=== PATIENT | male | born 1955 | race Caucasian/White ===

== ENCOUNTER 2017-01-13 16:33 | Inpatient (IN) | payer OTHER ==
[~2017-01-13] VITALS: Ht 177.8 cm; Wt 91.6 kg
[2017-01-13] MEDS ORDERED: SODIUM CHLORIDE 0.9% 1,000 ML IV ONE (19:02)
[2017-01-13 19:27] LABS: HEMATOCRIT. 30.9 % (42.0-52.0); HEMOGLOBIN. 10.1 g/dL (14.0-18.0); MEAN CORPUSCULAR HEMOGLOBIN 35.3 pg (28.0-32.0); MEAN CORPUSCULAR VOLUME 108.3 fL (80.0-94.0); PLATELET 287 x1000/uL (130-400); RED BLOOD CELL COUNT 2.86 mill/uL (4.7-6.1)
[2017-01-13 19:31] LABS: CHLORIDE 97 mEq/L (98-107); INR 1.4; PROTHROMBIN TIME 14.8 sec (9.4-11.6)
[2017-01-13 19:37] LABS: CARBON DIOXIDE 14 mEq/L (21-32); ETHANOL BLOOD < 10 mg/dL
[2017-01-13 19:48] LABS: PLATELET ESTIMATE NORMAL
[2017-01-13 20:21] LABS: AMMONIA 13 uMol/L (<32)
[2017-01-13] MEDS ORDERED: LORAZEPAM 2MG/ML CPJ IV ONE (21:15)
[2017-01-13 21:36] LABS: CLARITY URINE CLEAR (CLEAR); COLOR URINE ORANGE (YELLOW); GLUCOSE URINE NEGATIVE (NEGATIVE); KETONES URINE NEGATIVE (NEGATIVE); LEUKOCYTE ESTERASE URINE 1+ (NEGATIVE); NITRITE URINE POSITIVE (NEGATIVE); OCCULT BLOOD URINE NEGATIVE (NEGATIVE); PH URINE 5.5 (4.5-8.0); PROTEIN URINE NEGATIVE (NEGATIVE); SPECIFIC GRAVITY URINE 1.022 (1.005-1.030)
[2017-01-13 21:52] LABS: *AMPHETAMINES SCREEN URINE NEGATIVE (NEGATIVE); *BARBITURATES SCREEN URINE NEGATIVE (NEGATIVE); *BENZODIAZEPINES SCREEN URINE NEGATIVE (NEGATIVE); *COCAINE SCREEN URINE NEGATIVE (NEGATIVE); CANNABINOID URINE SCREEN NEGATIVE (NEGATIVE); METHADONE URINE SCREEN NEGATIVE (NEGATIVE); OPIATES URINE SCREEN NEGATIVE (NEGATIVE); PHENCYCLIDINE URINE SCREEN NEGATIVE (NEGATIVE)
[2017-01-13] MEDS ORDERED: VANCOMYCIN 1 G PREMIX 200 ML IV ONE (22:30)
[2017-01-13] MEDS ORDERED: PIPERACILLIN/TAZ 3.375G PREMIX 50 ML IV ONE (22:30)
[2017-01-13] MEDS ORDERED: SODIUM CHLORIDE 0.9% 1,000 ML IV SCH (22:47)
[2017-01-13 23:13] LABS: BG BASE EXCESS -7.7 mmol/L (-2.0-2.0); BG CARBOXYHEMOGLOBIN 0.3 % (0.5-1.5); BG FRACTION INSPIRED OXYGEN 32; BG HCO3 ACT 13.6 mmol/L (22.0-26.0); BG METHEMOGLOBIN 0.3 % (0.0-1.5); BG OXYHEMOGLOBIN 98.4 % (94.0-97.0); BG PCO2 17.8 mmHg (35.0-45.0); BG PH 7.502 (7.350-7.450); BG PO2 168.3 mmHg (75.0-100.0); BG SAMPLE SITE RIGHT RADIAL; BG VENT MODE NASAL CANNULA
[2017-01-14] VITALS (7 sets, daily range): BP systolic 104–136; BP diastolic 59–83
[2017-01-14 07:39] LABS: AMMONIA < 10 uMol/L (<32)
[2017-01-14] MEDS ORDERED: PIPERACILLIN/TAZ 3.375G PREMIX 50 ML IV SCH ×2 (08:00→12:00)
[2017-01-14 08:02] LABS: CARBON DIOXIDE 16 mEq/L (21-32); CHLORIDE 102 mEq/L (98-107); CREATINE KINASE 81 IU/L (39-308); HDL CHOLESTEROL 25 mg/dL (40-59); LDL CHOLESTEROL 155 mg/dL (5-100)
[2017-01-14 08:06] LABS: TROPONIN I < 0.02 ng/mL (0.00-0.04)
[2017-01-14 08:12] LABS: CREATINE KINASE MB FRACTION 1.4 ng/mL (0.5-3.6)
[2017-01-14 08:26] LABS: HEMATOCRIT. 27.1 % (42.0-52.0); MEAN CORPUSCULAR HEMOGLOBIN 35.7 pg (28.0-32.0); MEAN PLATELET VOLUME 8.9 fl (7.4-10.4); PLATELET 192 x1000/uL (130-400); RED BLOOD CELL COUNT 2.51 mill/uL (4.7-6.1); RED CELL DISTRIBUTION WIDTH 20.9 % (11.6-14.6)
[2017-01-14] MEDS: FOLIC ACID 1MG TABLET PO SCH (09:00)
[2017-01-14] MEDS: MULTIVITAMINS,THER W-MINERALS TABLET PO SCH (09:00)
[2017-01-14] MEDS: THIAMINE HCL 100MG TABLET PO SCH (09:00)
[2017-01-14] MEDS ORDERED: VANCOMYCIN 1250MG in DEXTROSE 5% WATER 250ML IV SCH (09:00)
[2017-01-14 09:20] LABS: T4 FREE 0.7 ng/dL (0.76-1.46)
[2017-01-14 09:44] LABS: FOLIC ACID (FOLATE) SERUM 1.9 ng/mL (>5.38)
[2017-01-14] MEDS: ENOXAPARIN 40MG/0.4ML SYR SUBCUT SCH (10:21)
[2017-01-14] MEDS: PIPERACILLIN/TAZ 3.375G PREMIX 50 ML IV SCH ×2 (15:42→20:40)
[2017-01-14] MEDS: DEXT 5%/0.45% NACL 1000ML 1,000 ML IV SCH (17:44)
[2017-01-14 19:06] LABS: CREATINE KINASE 86 IU/L (39-308); CREATINE KINASE MB FRACTION 1.3 ng/mL (0.5-3.6); TROPONIN I < 0.02 ng/mL (0.00-0.04)
[2017-01-14] MEDS ORDERED: KCL 20MEQ/100ML PREMIX 100 ML IV NR (20:00)
[2017-01-14] MEDS: VANCOMYCIN 1 G PREMIX 200 ML IV SCH (21:47)
[2017-01-15] VITALS: BP 119/64
[2017-01-15 00:13] LABS: PLATELET ESTIMATE NORMAL
[2017-01-15] MEDS: PIPERACILLIN/TAZ 3.375G PREMIX 50 ML IV SCH ×4 (03:56→22:47)
[2017-01-15 04:00] VITALS: BP 116/70
[2017-01-15] MEDS: DEXT 5%/0.45% NACL 1000ML 1,000 ML IV SCH ×2 (05:51→17:45)
[2017-01-15 06:55] LABS: BASOPHILS % 0.2 % (0.0-2.0); EOSINOPHILS % 0.4 % (0.0-5.0); HEMATOCRIT. 25.1 % (42.0-52.0); HEMOGLOBIN. 8.2 g/dL (14.0-18.0); LYMPHOCYTES % 8.9 % (20.0-50.0); MEAN CORPUSCULAR HEMOGLOBIN 35.8 pg (28.0-32.0); MEAN PLATELET VOLUME 8.4 fl (7.4-10.4); MONOCYTES % 2.9 % (2.0-8.0); NEUTROPHILS % 87.6 % (40.0-76.0); PLATELET 143 x1000/uL (130-400); RED BLOOD CELL COUNT 2.28 mill/uL (4.7-6.1); RED CELL DISTRIBUTION WIDTH 21.6 % (11.6-14.6)
[2017-01-15 08:00] VITALS: BP 107/76
[2017-01-15] MEDS: VANCOMYCIN 1 G PREMIX 200 ML IV SCH ×2 (08:36→22:47)
[2017-01-15] MEDS: ENOXAPARIN 40MG/0.4ML SYR SUBCUT SCH (08:40)
[2017-01-15] MEDS: THIAMINE HCL 100MG TABLET PO SCH (08:41)
[2017-01-15] MEDS: FOLIC ACID 1MG TABLET PO SCH (08:41)
[2017-01-15] MEDS: MULTIVITAMINS,THER W-MINERALS TABLET PO SCH (08:41)
[2017-01-15 09:47] LABS: AMMONIA 20 uMol/L (<32)
[2017-01-15 12:00] VITALS: BP 108/69
[2017-01-15 16:00] VITALS: BP 96/63
[2017-01-15 20:00] VITALS: BP 129/67
[2017-01-15] MEDS: MUPIROCIN 2% OINT 22GM NS SCH (22:48)
[2017-01-16] VITALS (7 sets, daily range): BP systolic 83–125; BP diastolic 51–72
[2017-01-16] MEDS: DEXT 5%/0.45% NACL 1000ML 1,000 ML IV SCH ×2 (06:10→15:24)
[2017-01-16] MEDS: PIPERACILLIN/TAZ 3.375G PREMIX 50 ML IV SCH ×4 (06:10→22:15)
[2017-01-16 07:06] LABS: BASOPHILS % 0.2 % (0.0-2.0); EOSINOPHILS % 0.4 % (0.0-5.0); HEMATOCRIT. 25.4 % (42.0-52.0); HEMOGLOBIN. 8.4 g/dL (14.0-18.0); LYMPHOCYTES % 9.8 % (20.0-50.0); MEAN CORPUSCULAR HEMOGLOBIN 35.7 pg (28.0-32.0); MEAN PLATELET VOLUME 8.3 fl (7.4-10.4); MONOCYTES % 2.6 % (2.0-8.0); PLATELET 124 x1000/uL (130-400); RED BLOOD CELL COUNT 2.35 mill/uL (4.7-6.1); RED CELL DISTRIBUTION WIDTH 20.6 % (11.6-14.6)
[2017-01-16 08:20] LABS: CARBON DIOXIDE 16 mEq/L (21-32); CHLORIDE 103 mEq/L (98-107)
[2017-01-16] MEDS: THIAMINE HCL 100MG TABLET PO SCH (08:31)
[2017-01-16] MEDS: FOLIC ACID 1MG TABLET PO SCH (08:31)
[2017-01-16] MEDS: ENOXAPARIN 40MG/0.4ML SYR SUBCUT SCH (08:31)
[2017-01-16] MEDS: MULTIVITAMINS,THER W-MINERALS TABLET PO SCH (08:31)
[2017-01-16] MEDS: MUPIROCIN 2% OINT 22GM NS SCH ×2 (08:33→22:15)
[2017-01-16] MEDS: VANCOMYCIN 1 G PREMIX 200 ML IV SCH (08:34)
[2017-01-16] MEDS ORDERED: POTASSIUM CHLORIDE 20MEQ TABLET SR PO NR ×2 (09:15→13:30)
[2017-01-16] MEDS ORDERED: GADOBENATE DIMEGLUMINE 529 MG/ML 10ML IV ONE (12:44)
[2017-01-16] MEDS: CHLORDIAZEPOXIDE 25MG CAPSULE PO SCH ×2 (13:23→22:15)
[2017-01-16] MEDS ORDERED: SODIUM CHLORIDE 0.9% 250 ML IV NR (20:30)
[2017-01-17] VITALS: BP 102/62
[2017-01-17 04:00] VITALS: BP 98/60
[2017-01-17] MEDS: PIPERACILLIN/TAZ 3.375G PREMIX 50 ML IV SCH ×2 (05:27→11:36)
[2017-01-17] MEDS: CHLORDIAZEPOXIDE 25MG CAPSULE PO SCH (05:27)
[2017-01-17 06:05] LABS: BASOPHILS % 0.4 % (0.0-2.0); EOSINOPHILS % 0.4 % (0.0-5.0); HEMATOCRIT. 23.1 % (42.0-52.0); HEMOGLOBIN. 7.4 g/dL (14.0-18.0); MEAN CORPUSCULAR HEMOGLOBIN 35.4 pg (28.0-32.0); MONOCYTES % 1.8 % (2.0-8.0); NEUTROPHILS % 87.4 % (40.0-76.0); PLATELET 82 x1000/uL (130-400); RED CELL DISTRIBUTION WIDTH 20.9 % (11.6-14.6)
[2017-01-17] MEDS: DEXT 5%/0.45% NACL 1000ML 1,000 ML IV SCH ×2 (07:45→23:39)
[2017-01-17 07:56] LABS: CARBON DIOXIDE 15 mEq/L (21-32); CHLORIDE 107 mEq/L (98-107)
[2017-01-17 08:00] VITALS: BP 94/63
[2017-01-17] MEDS: MUPIROCIN 2% OINT 22GM NS SCH ×2 (11:37→23:39)
[2017-01-17] MEDS: FOLIC ACID 1MG TABLET PO SCH (11:38)
[2017-01-17] MEDS: MULTIVITAMINS,THER W-MINERALS TABLET PO SCH (11:38)
[2017-01-17] MEDS: THIAMINE HCL 100MG TABLET PO SCH (11:38)
[2017-01-17] MEDS: ENOXAPARIN 40MG/0.4ML SYR SUBCUT SCH (11:40)
[2017-01-17 12:00] VITALS: BP 96/62
[2017-01-17 14:31] LABS: AMYLASE 256 IU/L (25-115); TOTAL IRON BINDING CAPACITY 155 ug/dL (250-450)
[2017-01-17 14:59] LABS: FOLIC ACID (FOLATE) SERUM 1.6 ng/mL (>5.38)
[2017-01-17 16:00] VITALS: BP 131/71
[2017-01-17 20:00] VITALS: BP 93/56
[2017-01-17] MEDS ORDERED: VANCOMYCIN 750 MG PREMIX 150 ML IV SCH (20:00)
[2017-01-17] MEDS: SENNOSIDES/DOCUSATE SOD 8.6/50MG TABLET PO SCH (21:00)
[2017-01-17] MEDS ORDERED: IOHEXOL-300 100 ML BOTTLE ONE (21:09)
[2017-01-18] VITALS (7 sets, daily range): BP systolic 86–104; BP diastolic 55–66
[2017-01-18] MEDS: FOLIC ACID 1MG TABLET PO SCH (09:01)
[2017-01-18] MEDS: THIAMINE HCL 100MG TABLET PO SCH (09:01)
[2017-01-18] MEDS: MULTIVITAMINS,THER W-MINERALS TABLET PO SCH (09:01)
[2017-01-18] MEDS: DEXT 5%/0.45% NACL 1000ML 1,000 ML IV SCH (09:03)
[2017-01-18] MEDS: MUPIROCIN 2% OINT 22GM NS SCH ×2 (09:03→20:25)
[2017-01-18 09:19] LABS: BASOPHILS % 0.2 % (0.0-2.0); EOSINOPHILS % 0.7 % (0.0-5.0); HEMATOCRIT. 22.6 % (42.0-52.0); HEMOGLOBIN. 7.5 g/dL (14.0-18.0); LYMPHOCYTES % 8.3 % (20.0-50.0); MEAN CORPUSCULAR VOLUME 108.7 fL (80.0-94.0); MEAN PLATELET VOLUME 9.4 fl (7.4-10.4); MONOCYTES % 2.1 % (2.0-8.0); NEUTROPHILS % 88.7 % (40.0-76.0); PLATELET 55 x1000/uL (130-400); RED BLOOD CELL COUNT 2.08 mill/uL (4.7-6.1); RED CELL DISTRIBUTION WIDTH 21.3 % (11.6-14.6)
[2017-01-18 09:41] LABS: CARBON DIOXIDE 21 mEq/L (21-32); CHLORIDE 107 mEq/L (98-107)
[2017-01-18] MEDS ORDERED: POTASSIUM CHLORIDE INJ 40 MEQ in DEXT 5% WATER 250 ML IV NR (11:30)
[2017-01-18] MEDS: SENNOSIDES/DOCUSATE SOD 8.6/50MG TABLET PO SCH (20:24)
[2017-01-19] VITALS (11 sets, daily range): BP systolic 93–121; BP diastolic 59–83
[2017-01-19] MEDS: DEXT 5%/0.45% NACL 1000ML 1,000 ML IV SCH ×2 (02:12→08:23)
[2017-01-19 07:57] LABS: BASOPHILS % 0.2 % (0.0-2.0); EOSINOPHILS % 0.8 % (0.0-5.0); LYMPHOCYTES % 11.3 % (20.0-50.0); MEAN CORPUSCULAR HEMOGLOBIN 35.2 pg (28.0-32.0); MEAN CORPUSCULAR VOLUME 109.4 fL (80.0-94.0); MEAN PLATELET VOLUME 9.3 fl (7.4-10.4); MONOCYTES % 4.6 % (2.0-8.0); NEUTROPHILS % 83.1 % (40.0-76.0); RED BLOOD CELL COUNT 1.91 mill/uL (4.7-6.1); RED CELL DISTRIBUTION WIDTH 21.1 % (11.6-14.6)
[2017-01-19] MEDS: FOLIC ACID 1MG TABLET PO SCH (08:23)
[2017-01-19] MEDS: THIAMINE HCL 100MG TABLET PO SCH (08:23)
[2017-01-19] MEDS: MUPIROCIN 2% OINT 22GM NS SCH ×2 (08:23→20:10)
[2017-01-19] MEDS: MULTIVITAMINS,THER W-MINERALS TABLET PO SCH (08:23)
[2017-01-19 08:37] LABS: HEMATOCRIT. 20.9 % (42.0-52.0); HEMOGLOBIN. 6.7 g/dL (14.0-18.0); PLATELET 38 x1000/uL (130-400)
[2017-01-19 09:05] LABS: AMYLASE 148 IU/L (25-115); CARBON DIOXIDE 23 mEq/L (21-32); CHLORIDE 110 mEq/L (98-107)
[2017-01-19 10:19] LABS: PLATELET ESTIMATE MARKEDLY DECREASED
[2017-01-19] MEDS: SENNOSIDES/DOCUSATE SOD 8.6/50MG TABLET PO SCH (20:10)
[2017-01-19] MEDS: METRONIDAZOLE 500MG TABLET PO SCH (21:23)
[2017-01-19 21:45] LABS: HEMATOCRIT 22.2 % (42.0-52.0); HEMOGLOBIN 7.2 g/dL (14.0-18.0)
[2017-01-20] VITALS (12 sets, daily range): BP systolic 119–151; BP diastolic 82–92
[2017-01-20] MEDS: METRONIDAZOLE 500MG TABLET PO SCH ×3 (05:09→21:27)
[2017-01-20 06:36] LABS: BASOPHILS % 0.2 % (0.0-2.0); EOSINOPHILS % 0.9 % (0.0-5.0); HEMATOCRIT. 25.8 % (42.0-52.0); HEMOGLOBIN. 8.4 g/dL (14.0-18.0); LYMPHOCYTES % 12.1 % (20.0-50.0); MEAN CORPUSCULAR HEMOGLOBIN 33.6 pg (28.0-32.0); MEAN CORPUSCULAR VOLUME 102.9 fL (80.0-94.0); MEAN PLATELET VOLUME 10.2 fl (7.4-10.4); MONOCYTES % 7.9 % (2.0-8.0); NEUTROPHILS % 78.9 % (40.0-76.0); RED BLOOD CELL COUNT 2.51 mill/uL (4.7-6.1); RED CELL DISTRIBUTION WIDTH 24.9 % (11.6-14.6)
[2017-01-20 06:47] LABS: PLATELET 37 x1000/uL (130-400)
[2017-01-20 07:42] LABS: CARBON DIOXIDE 23 mEq/L (21-32); CHLORIDE 107 mEq/L (98-107)
[2017-01-20] MEDS: THIAMINE HCL 100MG TABLET PO SCH (10:46)
[2017-01-20] MEDS: MULTIVITAMINS,THER W-MINERALS TABLET PO SCH (10:46)
[2017-01-20] MEDS: FOLIC ACID 1MG TABLET PO SCH (10:46)
[2017-01-20] MEDS: MUPIROCIN 2% OINT 22GM NS SCH ×2 (10:47→21:06)
[2017-01-20] MEDS: DEXT 5%/0.45% NACL 1000ML 1,000 ML IV SCH ×3 (14:17→21:05)
[2017-01-20] MEDS ORDERED: SORBITOL 70% SOLN 30ML PO NR ×2 (16:00→20:00)
[2017-01-20] MEDS ORDERED: BISACODYL 5MG TABLET PO NR ×2 (16:00→20:00)
[2017-01-20 16:53] LABS: AMYLASE 126 IU/L (25-115)
[2017-01-20] MEDS: SENNOSIDES/DOCUSATE SOD 8.6/50MG TABLET PO SCH (21:06)
[2017-01-21] VITALS (38 sets, daily range): BP systolic 123–162; BP diastolic 76–107
[2017-01-21 05:37] LABS: INR 1.3; PARTIAL THROMBOPLASTIN TIME 30.8 sec (23.4-31.0); PROTHROMBIN TIME 13.3 sec (9.4-11.6)
[2017-01-21] MEDS ORDERED: SORBITOL 70% SOLN 30ML PO NR (06:00)
[2017-01-21 06:24] LABS: BASOPHILS % 0.3 % (0.0-2.0); EOSINOPHILS % 0.6 % (0.0-5.0); HEMOGLOBIN. 8.8 g/dL (14.0-18.0); LYMPHOCYTES % 8.5 % (20.0-50.0); MEAN CORPUSCULAR HEMOGLOBIN 33.4 pg (28.0-32.0); MEAN CORPUSCULAR VOLUME 102.5 fL (80.0-94.0); MEAN PLATELET VOLUME 9.4 fl (7.4-10.4); NEUTROPHILS % 81.6 % (40.0-76.0); RED BLOOD CELL COUNT 2.64 mill/uL (4.7-6.1)
[2017-01-21] MEDS: METRONIDAZOLE 500MG TABLET PO SCH ×2 (06:37→13:58)
[2017-01-21 06:44] LABS: CHLORIDE 109 mEq/L (98-107)
[2017-01-21 06:55] LABS: CARBON DIOXIDE 19 mEq/L (21-32)
[2017-01-21 06:59] LABS: PLATELET 49 x1000/uL (130-400)
[2017-01-21] MEDS ORDERED: CLONIDINE 0.1MG TABLET PO PRN (12:15)
[2017-01-21] MEDS ORDERED: IPRATROPIUM/ALBUTEROL 0.5-3(2.5)MG/3ML NEB HHN PRN (12:30)
[2017-01-21] MEDS: MULTIVITAMINS,THER W-MINERALS TABLET PO SCH (13:00)
[2017-01-21] MEDS: FOLIC ACID 1MG TABLET PO SCH (13:00)
[2017-01-21] MEDS: THIAMINE HCL 100MG TABLET PO SCH (13:00)
[2017-01-21 13:03] LABS: BG BASE EXCESS -5.2 mmol/L (-2.0-2.0); BG CARBOXYHEMOGLOBIN 0.3 % (0.5-1.5); BG DEOXYHEMOGLOBIN 6.3 % (0.0-5.0); BG FRACTION INSPIRED OXYGEN 100; BG HCO3 ACT 17.9 mmol/L (22.0-26.0); BG OXYGEN SATURATION 93.7 % (92.0-98.5); BG OXYHEMOGLOBIN 93.4 % (94.0-97.0); BG PCO2 27.1 mmHg (35.0-45.0); BG PH 7.438 (7.350-7.450); BG PO2 71.8 mmHg (75.0-100.0); BG SAMPLE SITE RIGHT RADIAL; BG TOTAL HEMOGLOBIN 10.2 g/dL (12.0-18.0); BG VENT MODE MASK - NRB
[2017-01-21] MEDS: DEXT 5%/0.45% NACL 1000ML 1,000 ML IV SCH (13:26)
[2017-01-21] MEDS: IPRATROPIUM/ALBUTEROL 0.5-3(2.5)MG/3ML NEB HHN SCH ×2 (15:00→20:29)
[2017-01-21] MEDS ORDERED: CEPHALEXIN 250 MG/5 ML 100ML PO SCH (16:00)
[2017-01-21] MEDS ORDERED: ENALAPRIL 2.5MG/2ML VIAL 2ML IV PRN (16:15)
[2017-01-21 16:20] LABS: T4 FREE 0.73 ng/dL (0.76-1.46)
[2017-01-21] MEDS: MUPIROCIN 2% OINT 22GM NS SCH (16:53)
[2017-01-21] MEDS: PANTOPRAZOLE SODIUM 40 MG/VIAL IV SCH (20:06)
[2017-01-21] MEDS: CEFEPIME 1,000 MG in DEXTROSE 5% WATER 50 ML IV SCH (20:06)
[2017-01-21] MEDS: SENNOSIDES/DOCUSATE SOD 8.6/50MG TABLET PO SCH (20:06)
[2017-01-21] MEDS ORDERED: VANCOMYCIN 1250MG in DEXTROSE 5% WATER 250ML IV SCH (22:00)
[2017-01-22] VITALS (94 sets, daily range): BP systolic 116–184; BP diastolic 49–122
[2017-01-22] MEDS: IPRATROPIUM/ALBUTEROL 0.5-3(2.5)MG/3ML NEB HHN SCH ×4 (01:55→20:35)
[2017-01-22] MEDS: DEXT 5%/0.45% NACL 1000ML 1,000 ML IV SCH ×2 (05:05→19:10)
[2017-01-22 06:02] LABS: HEMATOCRIT. 25.5 % (42.0-52.0); HEMOGLOBIN. 8.3 g/dL (14.0-18.0); MEAN CORPUSCULAR HEMOGLOBIN 33.9 pg (28.0-32.0); MEAN CORPUSCULAR VOLUME 103.8 fL (80.0-94.0); PLATELET 52 x1000/uL (130-400); RED BLOOD CELL COUNT 2.46 mill/uL (4.7-6.1); RED CELL DISTRIBUTION WIDTH 24.6 % (11.6-14.6)
[2017-01-22 06:19] LABS: CARBON DIOXIDE 22 mEq/L (21-32); CHLORIDE 112 mEq/L (98-107)
[2017-01-22] MEDS: THIAMINE HCL 100MG TABLET PO SCH (09:00)
[2017-01-22] MEDS: MULTIVITAMINS,THER W-MINERALS TABLET PO SCH (09:00)
[2017-01-22] MEDS: FOLIC ACID 1MG TABLET PO SCH (09:00)
[2017-01-22] MEDS: CEFEPIME 1,000 MG in DEXTROSE 5% WATER 50 ML IV SCH ×2 (09:27→20:32)
[2017-01-22] MEDS: PANTOPRAZOLE SODIUM 40 MG/VIAL IV SCH ×2 (09:27→20:32)
[2017-01-22] MEDS ORDERED: POTASSIUM CHLORIDE 20MEQ/PACKET PO SCH (11:00)
[2017-01-22 11:02] LABS: NUCLEATED RED BLOOD CELLS 1 /100 WBC; PLATELET ESTIMATE DECREASED
[2017-01-22] MEDS ORDERED: SODIUM CHLORIDE 0.9% 250 ML IV ONE (11:15)
[2017-01-22] MEDS: AMLODIPINE 2.5MG TABLET PO SCH ×2 (11:18→20:43)
[2017-01-22] MEDS: VANCOMYCIN 750 MG PREMIX 150 ML IV SCH (15:58)
[2017-01-22] MEDS: SENNOSIDES/DOCUSATE SOD 8.6/50MG TABLET PO SCH (20:39)
[2017-01-23] VITALS (70 sets, daily range): BP systolic 91–140; BP diastolic 61–98
[2017-01-23] MEDS: IPRATROPIUM/ALBUTEROL 0.5-3(2.5)MG/3ML NEB HHN SCH ×4 (01:39→20:40)
[2017-01-23 06:25] LABS: HEMATOCRIT. 26.3 % (42.0-52.0); HEMOGLOBIN. 8.5 g/dL (14.0-18.0); MEAN CORPUSCULAR VOLUME 102.2 fL (80.0-94.0); MEAN PLATELET VOLUME 10.8 fl (7.4-10.4); PLATELET 79 x1000/uL (130-400); RED BLOOD CELL COUNT 2.57 mill/uL (4.7-6.1); RED CELL DISTRIBUTION WIDTH 23.9 % (11.6-14.6)
[2017-01-23 06:27] LABS: CARBON DIOXIDE 21 mEq/L (21-32); CHLORIDE 105 mEq/L (98-107)
[2017-01-23 07:30] LABS: PLATELET ESTIMATE DECREASED
[2017-01-23] MEDS: CEFEPIME 1,000 MG in DEXTROSE 5% WATER 50 ML IV SCH ×2 (08:44→20:54)
[2017-01-23] MEDS: PANTOPRAZOLE SODIUM 40 MG/VIAL IV SCH ×2 (08:44→20:54)
[2017-01-23] MEDS: THIAMINE HCL 100MG TABLET PO SCH (08:44)
[2017-01-23] MEDS: MULTIVITAMINS,THER W-MINERALS TABLET PO SCH (08:44)
[2017-01-23] MEDS: FOLIC ACID 1MG TABLET PO SCH (08:44)
[2017-01-23] MEDS: AMLODIPINE 2.5MG TABLET PO SCH ×2 (08:46→21:00)
[2017-01-23] MEDS: DEXT 5%/0.45% NACL 1000ML 1,000 ML IV SCH (08:53)
[2017-01-23] MEDS ORDERED: POTASSIUM CHLORIDE 20MEQ/PACKET PO NR (09:15)
[2017-01-23] MEDS: VANCOMYCIN 750 MG PREMIX 150 ML IV SCH (09:54)
[2017-01-23] MEDS ORDERED: MAGNESIUM 2 G PREMIX 50 ML IV NR (10:30)
[2017-01-23 11:05] LABS: AMYLASE 46 IU/L (25-115)
[2017-01-23 11:06] LABS: AMMONIA 43 uMol/L (<32)
[2017-01-23] MEDS: METOPROLOL TARTRATE 25MG TABLET PO SCH ×2 (13:07→21:00)
[2017-01-23] MEDS: LACTULOSE 20G/30ML UDC PO SCH ×2 (15:36→20:57)
[2017-01-23] MEDS ORDERED: SORBITOL 70% SOLN 30ML PO NR ×2 (16:00→20:00)
[2017-01-23] MEDS ORDERED: SODIUM CHLORIDE 0.9% 250 ML IV NR (16:45)
[2017-01-23] MEDS: METRONIDAZOLE 500 MG PREMIX 100 ML IV SCH (17:26)
[2017-01-23] MEDS: SENNOSIDES/DOCUSATE SOD 8.6/50MG TABLET PO SCH (20:57)
[2017-01-23] MEDS ORDERED: ENALAPRIL 1.25MG/ML VIAL 1ML IV PRN (21:51)
[2017-01-24] VITALS (83 sets, daily range): BP systolic 77–134; BP diastolic 40–86
[2017-01-24] MEDS: DEXT 5%/0.45% NACL 1000ML 1,000 ML IV SCH ×3 (02:00→14:45)
[2017-01-24] MEDS: IPRATROPIUM/ALBUTEROL 0.5-3(2.5)MG/3ML NEB HHN SCH ×4 (02:06→21:11)
[2017-01-24] MEDS: METRONIDAZOLE 500 MG PREMIX 100 ML IV SCH ×2 (03:09→15:49)
[2017-01-24 05:53] LABS: HEMATOCRIT. 25.8 % (42.0-52.0); HEMOGLOBIN. 8.4 g/dL (14.0-18.0); MEAN CORPUSCULAR HEMOGLOBIN 33.5 pg (28.0-32.0); MEAN CORPUSCULAR VOLUME 103.2 fL (80.0-94.0); MEAN PLATELET VOLUME 11.3 fl (7.4-10.4); PLATELET 111 x1000/uL (130-400); RED CELL DISTRIBUTION WIDTH 23.6 % (11.6-14.6)
[2017-01-24] MEDS: LACTULOSE 20G/30ML UDC PO SCH ×3 (06:00→21:50)
[2017-01-24 06:17] LABS: CHLORIDE 105 mEq/L (98-107)
[2017-01-24 06:25] LABS: CARBON DIOXIDE 22 mEq/L (21-32)
[2017-01-24 06:29] LABS: AMMONIA 45 uMol/L (<32)
[2017-01-24 06:38] LABS: INR 1.4; PARTIAL THROMBOPLASTIN TIME 34.2 sec (23.4-31.0); PROTHROMBIN TIME 14.5 sec (9.4-11.6)
[2017-01-24] MEDS: AMLODIPINE 2.5MG TABLET PO SCH ×2 (08:19→20:33)
[2017-01-24] MEDS: MULTIVITAMINS,THER W-MINERALS TABLET PO SCH (08:19)
[2017-01-24] MEDS: FOLIC ACID 1MG TABLET PO SCH (08:19)
[2017-01-24] MEDS: THIAMINE HCL 100MG TABLET PO SCH (08:19)
[2017-01-24] MEDS: METOPROLOL TARTRATE 25MG TABLET PO SCH ×2 (08:19→20:33)
[2017-01-24] MEDS: PANTOPRAZOLE SODIUM 40 MG/VIAL IV SCH ×2 (08:30→20:32)
[2017-01-24] MEDS: CEFEPIME 1,000 MG in DEXTROSE 5% WATER 50 ML IV SCH ×2 (08:30→20:32)
[2017-01-24 10:23] LABS: PLATELET ESTIMATE SLIGHTLY DECREASED
[2017-01-24] MEDS ORDERED: MIDAZOLAM HCL 5 MG/5 ML VIAL ONE (12:14)
[2017-01-24] MEDS ORDERED: FENTANYL CITRATE/PF 50MCG/ML 2ML VIAL ONE (12:14)
[2017-01-24 12:32] LABS: CREATINE KINASE 35 IU/L (39-308)
[2017-01-24] MEDS ORDERED: MIDAZOLAM HCL 5 MG/5 ML VIAL IV PRN (12:33)
[2017-01-24] MEDS: SENNOSIDES/DOCUSATE SOD 8.6/50MG TABLET PO SCH (20:32)
[2017-01-25] VITALS (13 sets, daily range): BP systolic 104–126; BP diastolic 70–84
[2017-01-25] MEDS: IPRATROPIUM/ALBUTEROL 0.5-3(2.5)MG/3ML NEB HHN SCH ×4 (01:59→19:41)
[2017-01-25] MEDS: METRONIDAZOLE 500 MG PREMIX 100 ML IV SCH ×2 (03:18→15:16)
[2017-01-25] MEDS: DEXT 5%/0.45% NACL 1000ML 1,000 ML IV SCH ×2 (03:18→16:48)
[2017-01-25] MEDS: LACTULOSE 20G/30ML UDC PO SCH ×3 (06:40→21:42)
[2017-01-25] MEDS: THIAMINE HCL 100MG TABLET PO SCH (09:33)
[2017-01-25] MEDS: MULTIVITAMINS,THER W-MINERALS TABLET PO SCH (09:34)
[2017-01-25] MEDS: FOLIC ACID 1MG TABLET PO SCH (09:34)
[2017-01-25] MEDS: METOPROLOL TARTRATE 25MG TABLET PO SCH ×2 (09:35→21:43)
[2017-01-25] MEDS: CEFEPIME 1,000 MG in DEXTROSE 5% WATER 50 ML IV SCH ×2 (09:35→21:42)
[2017-01-25] MEDS: AMLODIPINE 2.5MG TABLET PO SCH ×2 (09:35→21:43)
[2017-01-25] MEDS: PANTOPRAZOLE SODIUM 40 MG/VIAL IV SCH ×2 (09:35→21:42)
[2017-01-25 10:05] LABS: CLARITY URINE CLOUDY (CLEAR); COLOR URINE ORANGE (YELLOW); GLUCOSE URINE NEGATIVE (NEGATIVE); KETONES URINE TRACE (NEGATIVE); LEUKOCYTE ESTERASE URINE TRACE (NEGATIVE); NITRITE URINE POSITIVE (NEGATIVE); OCCULT BLOOD URINE 2+ (NEGATIVE); PH URINE 5.5 (4.5-8.0); PROTEIN URINE 1+ (NEGATIVE); SPECIFIC GRAVITY URINE 1.029 (1.005-1.030); UROBILINOGEN URINE 0.2 E.U./dL (0.2-1.0)
[2017-01-25 13:35] LABS: HEMATOCRIT. 26.2 % (42.0-52.0); HEMOGLOBIN. 8.4 g/dL (14.0-18.0); MEAN CORPUSCULAR HEMOGLOBIN 33.2 pg (28.0-32.0); MEAN PLATELET VOLUME 10.6 fl (7.4-10.4); PLATELET 157 x1000/uL (130-400); RED BLOOD CELL COUNT 2.55 mill/uL (4.7-6.1); RED CELL DISTRIBUTION WIDTH 23.5 % (11.6-14.6)
[2017-01-25 13:58] LABS: CARBON DIOXIDE 20 mEq/L (21-32); CHLORIDE 108 mEq/L (98-107)
[2017-01-25 15:00] LABS: PLATELET ESTIMATE NORMAL
[2017-01-25] MEDS: SENNOSIDES/DOCUSATE SOD 8.6/50MG TABLET PO SCH (21:00)
[2017-01-26] VITALS (13 sets, daily range): BP systolic 102–119; BP diastolic 53–80
[2017-01-26] MEDS: IPRATROPIUM/ALBUTEROL 0.5-3(2.5)MG/3ML NEB HHN SCH ×4 (02:51→20:18)
[2017-01-26] MEDS: METRONIDAZOLE 500 MG PREMIX 100 ML IV SCH ×2 (03:32→15:14)
[2017-01-26] MEDS: DEXT 5%/0.45% NACL 1000ML 1,000 ML IV SCH ×2 (03:34→21:33)
[2017-01-26] MEDS: LACTULOSE 20G/30ML UDC PO SCH ×4 (06:00→21:32)
[2017-01-26] MEDS ORDERED: POTASSIUM CHLORIDE 20MEQ TABLET SR PO NR (09:30)
[2017-01-26] MEDS: PANTOPRAZOLE SODIUM 40 MG/VIAL IV SCH ×2 (09:34→22:16)
[2017-01-26] MEDS: CEFEPIME 1,000 MG in DEXTROSE 5% WATER 50 ML IV SCH ×2 (09:34→21:32)
[2017-01-26] MEDS: AMLODIPINE 2.5MG TABLET PO SCH ×2 (09:45→21:33)
[2017-01-26] MEDS: THIAMINE HCL 100MG TABLET PO SCH (10:31)
[2017-01-26] MEDS: FOLIC ACID 1MG TABLET PO SCH (10:31)
[2017-01-26] MEDS: METOPROLOL TARTRATE 25MG TABLET PO SCH ×2 (10:31→21:32)
[2017-01-26] MEDS: MULTIVITAMINS,THER W-MINERALS TABLET PO SCH (10:31)
[2017-01-26 11:26] LABS: HEMATOCRIT. 25.6 % (42.0-52.0); HEMOGLOBIN. 8.3 g/dL (14.0-18.0); MEAN PLATELET VOLUME 10.8 fl (7.4-10.4); PLATELET 171 x1000/uL (130-400); RED BLOOD CELL COUNT 2.51 mill/uL (4.7-6.1); RED CELL DISTRIBUTION WIDTH 24.4 % (11.6-14.6)
[2017-01-26 11:41] LABS: CARBON DIOXIDE 22 mEq/L (21-32); CHLORIDE 106 mEq/L (98-107)
[2017-01-26 13:33] LABS: PLATELET ESTIMATE NORMAL
[2017-01-26] MEDS: SENNOSIDES/DOCUSATE SOD 8.6/50MG TABLET PO SCH (21:00)
[2017-01-27] VITALS (15 sets, daily range): BP systolic 93–118; BP diastolic 64–78
[2017-01-27] MEDS: IPRATROPIUM/ALBUTEROL 0.5-3(2.5)MG/3ML NEB HHN SCH ×4 (02:28→20:05)
[2017-01-27] MEDS: METRONIDAZOLE 500 MG PREMIX 100 ML IV SCH ×2 (04:23→15:25)
[2017-01-27] MEDS: LACTULOSE 20G/30ML UDC PO SCH ×2 (06:31→17:14)
[2017-01-27 06:56] LABS: HEMOGLOBIN. 8.2 g/dL (14.0-18.0); MEAN CORPUSCULAR HEMOGLOBIN 31.8 pg (28.0-32.0); MEAN CORPUSCULAR VOLUME 100.7 fL (80.0-94.0); MEAN PLATELET VOLUME 10.7 fl (7.4-10.4); PLATELET 201 x1000/uL (130-400); RED BLOOD CELL COUNT 2.58 mill/uL (4.7-6.1); RED CELL DISTRIBUTION WIDTH 24.4 % (11.6-14.6)
[2017-01-27 07:10] LABS: AMYLASE 57 IU/L (25-115); CARBON DIOXIDE 21 mEq/L (21-32); CHLORIDE 105 mEq/L (98-107); PHOSPHORUS 2.7 mg/dL (2.5-4.9)
[2017-01-27] MEDS: CEFEPIME 1,000 MG in DEXTROSE 5% WATER 50 ML IV SCH ×2 (08:00→21:50)
[2017-01-27] MEDS: PANTOPRAZOLE SODIUM 40 MG/VIAL IV SCH ×2 (08:01→21:50)
[2017-01-27] MEDS ORDERED: POTASSIUM CHLORIDE 20MEQ TABLET SR PO SCH (09:15)
[2017-01-27 09:24] LABS: PLATELET ESTIMATE NORMAL
[2017-01-27] MEDS: METOPROLOL TARTRATE 25MG TABLET PO SCH ×2 (10:35→21:00)
[2017-01-27] MEDS: AMLODIPINE 2.5MG TABLET PO SCH ×2 (10:35→21:00)
[2017-01-27] MEDS: THIAMINE HCL 100MG TABLET PO SCH (10:35)
[2017-01-27] MEDS: MULTIVITAMINS,THER W-MINERALS TABLET PO SCH (10:35)
[2017-01-27] MEDS: FOLIC ACID 1MG TABLET PO SCH (10:35)
[2017-01-27 11:40] LABS: AMMONIA 26 uMol/L (<32)
[2017-01-27] MEDS: DEXT 5%/0.45% NACL 1000ML 1,000 ML IV SCH (17:16)
[2017-01-27] MEDS: SENNOSIDES/DOCUSATE SOD 8.6/50MG TABLET PO SCH (21:00)
[2017-01-28] VITALS (12 sets, daily range): BP systolic 96–127; BP diastolic 59–77
[2017-01-28] MEDS: IPRATROPIUM/ALBUTEROL 0.5-3(2.5)MG/3ML NEB HHN SCH ×4 (01:16→20:01)
[2017-01-28] MEDS: METRONIDAZOLE 500 MG PREMIX 100 ML IV SCH ×2 (04:14→15:50)
[2017-01-28 06:42] LABS: HEMATOCRIT. 25.3 % (42.0-52.0); HEMOGLOBIN. 8.4 g/dL (14.0-18.0); MEAN CORPUSCULAR HEMOGLOBIN 33.1 pg (28.0-32.0); MEAN CORPUSCULAR VOLUME 99.8 fL (80.0-94.0); MEAN PLATELET VOLUME 10.6 fl (7.4-10.4); PLATELET 233 x1000/uL (130-400); RED BLOOD CELL COUNT 2.53 mill/uL (4.7-6.1); RED CELL DISTRIBUTION WIDTH 24.3 % (11.6-14.6)
[2017-01-28 07:11] LABS: CARBON DIOXIDE 18 mEq/L (21-32); CHLORIDE 108 mEq/L (98-107)
[2017-01-28 07:14] LABS: PHOSPHORUS 2.6 mg/dL (2.5-4.9)
[2017-01-28] MEDS: LACTULOSE 20G/30ML UDC PO SCH ×2 (08:46→18:27)
[2017-01-28] MEDS: PANTOPRAZOLE SODIUM 40 MG/VIAL IV SCH ×2 (08:46→22:28)
[2017-01-28] MEDS: MULTIVITAMINS,THER W-MINERALS TABLET PO SCH (08:52)
[2017-01-28] MEDS: FOLIC ACID 1MG TABLET PO SCH (08:52)
[2017-01-28] MEDS: CEFEPIME 1,000 MG in DEXTROSE 5% WATER 50 ML IV SCH ×2 (08:52→22:28)
[2017-01-28] MEDS: METOPROLOL TARTRATE 25MG TABLET PO SCH ×2 (08:53→22:31)
[2017-01-28] MEDS: THIAMINE HCL 100MG TABLET PO SCH (08:53)
[2017-01-28] MEDS: AMLODIPINE 2.5MG TABLET PO SCH ×2 (10:38→22:31)
[2017-01-28] MEDS: DEXT 5%/0.45% NACL 1000ML 1,000 ML IV SCH (15:49)
[2017-01-28 16:11] LABS: PLATELET ESTIMATE NORMAL
[2017-01-28] MEDS: SENNOSIDES/DOCUSATE SOD 8.6/50MG TABLET PO SCH (22:29)
[2017-01-29] VITALS (15 sets, daily range): BP systolic 84–132; BP diastolic 49–88
[2017-01-29] MEDS: IPRATROPIUM/ALBUTEROL 0.5-3(2.5)MG/3ML NEB HHN SCH ×4 (00:55→21:37)
[2017-01-29] MEDS: METRONIDAZOLE 500 MG PREMIX 100 ML IV SCH ×2 (02:59→16:09)
[2017-01-29 07:01] LABS: AMMONIA 20 uMol/L (<32)
[2017-01-29 07:13] LABS: HEMATOCRIT. 25.9 % (42.0-52.0); HEMOGLOBIN. 8.3 g/dL (14.0-18.0); MEAN CORPUSCULAR HEMOGLOBIN 31.8 pg (28.0-32.0); MEAN CORPUSCULAR VOLUME 99.4 fL (80.0-94.0); MEAN PLATELET VOLUME 10.1 fl (7.4-10.4); PLATELET 326 x1000/uL (130-400); RED CELL DISTRIBUTION WIDTH 24.2 % (11.6-14.6)
[2017-01-29 07:23] LABS: CARBON DIOXIDE 19 mEq/L (21-32); CHLORIDE 106 mEq/L (98-107)
[2017-01-29] MEDS: THIAMINE HCL 100MG TABLET PO SCH (09:02)
[2017-01-29] MEDS: PANTOPRAZOLE SODIUM 40 MG/VIAL IV SCH ×2 (09:02→20:45)
[2017-01-29] MEDS: FOLIC ACID 1MG TABLET PO SCH (09:02)
[2017-01-29] MEDS: LACTULOSE 20G/30ML UDC PO SCH ×2 (09:02→17:43)
[2017-01-29] MEDS: MULTIVITAMINS,THER W-MINERALS TABLET PO SCH (09:03)
[2017-01-29] MEDS: AMLODIPINE 2.5MG TABLET PO SCH ×2 (09:04→20:45)
[2017-01-29] MEDS: METOPROLOL TARTRATE 25MG TABLET PO SCH ×2 (09:04→20:45)
[2017-01-29] MEDS ORDERED: FUROSEMIDE 20MG/2ML VIAL IVP NR (09:15)
[2017-01-29] MEDS: DEXT 5%/0.45% NACL 1000ML 1,000 ML IV SCH (09:24)
[2017-01-29 16:47] LABS: PLATELET ESTIMATE NORMAL
[2017-01-29] MEDS: SENNOSIDES/DOCUSATE SOD 8.6/50MG TABLET PO SCH (20:45)
[2017-01-30] VITALS (20 sets, daily range): BP systolic 89–126; BP diastolic 60–84
[2017-01-30] MEDS: IPRATROPIUM/ALBUTEROL 0.5-3(2.5)MG/3ML NEB HHN SCH ×4 (02:50→20:11)
[2017-01-30] MEDS: DEXT 5%/0.45% NACL 1000ML 1,000 ML IV SCH (05:05)
[2017-01-30] MEDS: METRONIDAZOLE 500 MG PREMIX 100 ML IV SCH ×2 (05:05→15:59)
[2017-01-30 07:05] LABS: CARBON DIOXIDE 21 mEq/L (21-32); CHLORIDE 105 mEq/L (98-107)
[2017-01-30 08:15] LABS: HEMATOCRIT. 24.2 % (42.0-52.0); HEMOGLOBIN. 7.7 g/dL (14.0-18.0); MEAN CORPUSCULAR HEMOGLOBIN 32.5 pg (28.0-32.0); MEAN CORPUSCULAR VOLUME 101.6 fL (80.0-94.0); MEAN PLATELET VOLUME 9.9 fl (7.4-10.4); PLATELET 297 x1000/uL (130-400); RED BLOOD CELL COUNT 2.38 mill/uL (4.7-6.1); RED CELL DISTRIBUTION WIDTH 24.1 % (11.6-14.6)
[2017-01-30] MEDS: AMLODIPINE 2.5MG TABLET PO SCH ×2 (09:12→21:34)
[2017-01-30] MEDS: LACTULOSE 20G/30ML UDC PO SCH ×2 (09:12→16:55)
[2017-01-30] MEDS: MULTIVITAMINS,THER W-MINERALS TABLET PO SCH (09:12)
[2017-01-30] MEDS: THIAMINE HCL 100MG TABLET PO SCH (09:12)
[2017-01-30] MEDS: PANTOPRAZOLE SODIUM 40 MG/VIAL IV SCH ×2 (09:12→21:34)
[2017-01-30] MEDS: FOLIC ACID 1MG TABLET PO SCH (09:12)
[2017-01-30] MEDS: METOPROLOL TARTRATE 25MG TABLET PO SCH ×2 (09:13→21:34)
[2017-01-30 14:20] LABS: PLATELET ESTIMATE NORMAL
[2017-01-30] MEDS: SENNOSIDES/DOCUSATE SOD 8.6/50MG TABLET PO SCH (21:34)
[2017-01-31] VITALS (8 sets, daily range): BP systolic 90–122; BP diastolic 62–80
[2017-01-31] MEDS: METOPROLOL TARTRATE 25MG TABLET PO SCH (09:00)
[2017-01-31] MEDS: AMLODIPINE 2.5MG TABLET PO SCH (09:00)
[2017-01-31] MEDS: PANTOPRAZOLE SODIUM 40 MG/VIAL IV SCH (09:00)
[2017-01-31] MEDS: MULTIVITAMINS,THER W-MINERALS TABLET PO SCH (09:00)
[2017-01-31] MEDS: LACTULOSE 20G/30ML UDC PO SCH (09:00)
[2017-01-31] MEDS: THIAMINE HCL 100MG TABLET PO SCH (09:00)
[2017-01-31] MEDS: FOLIC ACID 1MG TABLET PO SCH (09:00)
[2017-01-31] MEDS: IPRATROPIUM/ALBUTEROL 0.5-3(2.5)MG/3ML NEB HHN SCH (09:05)
[2017-01-31 09:59] LABS: HEMATOCRIT. 25.3 % (42.0-52.0); HEMOGLOBIN. 7.9 g/dL (14.0-18.0); MEAN CORPUSCULAR HEMOGLOBIN 31.9 pg (28.0-32.0); MEAN CORPUSCULAR VOLUME 101.6 fL (80.0-94.0); MEAN PLATELET VOLUME 10.4 fl (7.4-10.4); PLATELET 343 x1000/uL (130-400); RED BLOOD CELL COUNT 2.49 mill/uL (4.7-6.1); RED CELL DISTRIBUTION WIDTH 23.8 % (11.6-14.6)
[2017-01-31 10:51] LABS: CHLORIDE 106 mEq/L (98-107)
[2017-01-31 10:59] LABS: CARBON DIOXIDE 18 mEq/L (21-32)
[2017-02-01 04:04] LABS: PLATELET ESTIMATE NORMAL
== END 2017-01-31 17:15 | DRG 720 ==
LOC: ER 18:16 → 7WST 22:52 → ENRESERV 23:11 → MICUSO 01-21 12:42 → 3WST 01-25 00:43
PROVIDERS: ADMIT Internal Medicine; ATTEND Internal Medicine
PROC: 4A00X4Z Measurement of Central Nervous Electrical Activity, External Approach (ICD-10-PCS; 2017-01-15)
PROC: 30233N1 Transfusion of Nonautologous Red Blood Cells into Peripheral Vein, Percutaneous Approach (ICD-10-PCS; 2017-01-19)
PROC: 30233R1 Transfusion of Nonautologous Platelets into Peripheral Vein, Percutaneous Approach (ICD-10-PCS; 2017-01-20)
PROC: 0DJD8ZZ Inspection of Lower Intestinal Tract, Via Natural or Artificial Opening Endoscopic (ICD-10-PCS; principal; 2017-01-24 12:30)
DX: A41.9 Sepsis, unspecified organism (principal); N17.0 Acute kidney failure with tubular necrosis; J96.00 Acute respiratory failure, unspecified whether with hypoxia or hypercapnia; E43 Unspecified severe protein-calorie malnutrition; I50.33 Acute on chronic diastolic (congestive) heart failure; G92 Toxic encephalopathy; D68.9 Coagulation defect, unspecified; E87.2 Acidosis; J18.9 Pneumonia, unspecified organism; I13.0 Hypertensive heart and chronic kidney disease with heart failure and stage 1 through stage 4 chronic kidney disease, or unspecified chronic kidney disease; D69.6 Thrombocytopenia, unspecified; E86.0 Dehydration; D53.9 Nutritional anemia, unspecified; D63.8 Anemia in other chronic diseases classified elsewhere; E03.9 Hypothyroidism, unspecified; E78.00 Pure hypercholesterolemia, unspecified; E78.5 Hyperlipidemia, unspecified; F10.239 Alcohol dependence with withdrawal, unspecified; J32.0 Chronic maxillary sinusitis; J44.9 Chronic obstructive pulmonary disease, unspecified; K62.6 Ulcer of anus and rectum; K64.8 Other hemorrhoids; K70.9 Alcoholic liver disease, unspecified; L03.90 Cellulitis, unspecified; M10.079 Idiopathic gout, unspecified ankle and foot; M48.02 Spinal stenosis, cervical region; N13.30 Unspecified hydronephrosis; N18.9 Chronic kidney disease, unspecified; R13.10 Dysphagia, unspecified; K92.2 Gastrointestinal hemorrhage, unspecified; K76.0 Fatty (change of) liver, not elsewhere classified; J44.0 Chronic obstructive pulmonary disease with (acute) lower respiratory infection; K85.90 Acute pancreatitis without necrosis or infection, unspecified; Z80.0 Family history of malignant neoplasm of digestive organs
CPT/HCPCS: 36415; 36600; 70450; 70544; 70551; 70552; 71010; 72141; 72146; 72148; 73660; 74177; 76700; 76770; 80048; 80053; 80061; 80076; 80202; 80305; 80307; 80329; 81001; 82140; 82150; 82270; 82375; 82533; 82550; 82553; 82607; 82728; 82746; 82805; 82962; 83036; 83540; 83550; 83605; 83690; 83735; 84100; 84439; 84443; 84481; 84484; 84550; 85014; 85018; 85025; 85610; 85730; 86850; 86900; 86920; 86945; 87040; 87086; 92523; 92610; 93005; 93306; 93970; 94640; 94667; 96361; 96365; 96367; 96375; 97110; 97162; 97164; 97166; 97168; 97530; 97535; 99291; A6261; A9577; C9113; G0482; J0692; J1650; J1940; J2060; J2250; J2543; J3010; J3370; J3475; J3480; J3490; J7030; J7042; J7050; J7060; J7620; P9016; P9034; Q9967; A4315